=== PATIENT | female | born 1970 | race Caucasian/White ===

== ENCOUNTER 2021-07-17 21:08 | Emergency (ER) | payer MEDICARE, SELFPAY ==
[2021-07-17 21:29] VITALS: BP 144/89; PULSE 82; RESP 18; TEMP 36.9; O2SAT 100
[2021-07-17 21:43] VITALS: RESP 14
--- NOTE | 2021-07-17 21:47 | ED.GENADUL_ITS ---
Discharge Plan Disposition Patient Disposition: HOME Condition: Improving Discharge Details Clinical Impression: Pain Primary Care Provider: Manuel Chairez ED Provider: Bobby Draper Home Meds and New Rx's Prescriptions: Continued ibuprofen 800 mg Tablet 800 mg PO TID 0RF doxepin 25 mg Capsule 50 mg PO QHS 0RF cyanocobalamin (vitamin B-12) 1,000 mcg Tablet 1,000 mcg PO DIRECTED 0RF Rx Instructions: monthy gabapentin 800 mg Tablet 800 mg PO TID 0RF naproxen 500 mg Tablet 500 mg PO BID 0RF buspirone 15 mg Tablet 15 mg PO TID 0RF venlafaxine 75 mg Tablet Extended Release 24hr 75 mg PO DAILY 0RF Discharge Instructions Instructions: Back Pain (ED) Additional Instructions: Please be seen by your primary care doctor as scheduled on Saturday to obtain your prescriptions. Medical Decision Making 50-year-old female history of chronic pain present with body aches back pain acute on chronic atraumatic in nature over the past several days, is out of her medications is having her medications refilled on Saturday by her primary care doctor, no urinary symptoms afebrile neurologically intact ambulatory no ataxia, no midline spinal tenderness, no bowel or bladder issues. Likely component of mild opioid withdrawal given recent rehab discharge and no current prescriptions, low suspicion for traumatic or infectious process such as UTI or pyelonephritis, low suspicion for any acute neurologic impingement such as cauda equina. Will dose patient's gabapentin, will give IM Toradol, Lidoderm patch, patient is driving this evening will not administer opiate or benzodiazepine. Encourage follow-up. Resting comfortably no acute distress. Has primary care follow-up on Saturday. HPI General Date/Time Provider Initiated Documentation: 07/17/21 21:24 . HPI Narrative: 58-year-old female history of multiple bulging disks chronic pain, recently got out of rehab, presents with body pain backache acute on chronic atraumatic in nature, endorses that she takes gabapentin and multiple other medications and is having her medications filled on Saturday by her primary care doctor. Denies fevers nausea vomiting trouble breathing cough change in taste and smell. Related Data Home Medications Medication Instructions Recorded Confirmed buspirone 15 mg tablet 15 mg PO TID 07/17/21 07/17/21 cyanocobalamin (vitamin B-12) 1,000 mcg PO DIRECTED 07/17/21 07/17/21 1,000 mcg tablet doxepin 25 mg capsule 50 mg PO QHS 07/17/21 07/17/21 gabapentin 800 mg tablet 800 mg PO TID 07/17/21 07/17/21 ibuprofen 800 mg tablet 800 mg PO TID 07/17/21 07/17/21 naproxen 500 mg tablet 500 mg PO BID 07/17/21 07/17/21 venlafaxine 75 mg tablet,extended 75 mg PO DAILY 07/17/21 07/17/21 release 24 hr Allergies Allergy/AdvReac Type Severity Reaction Status Date / Time esomeprazole [From Nexium] Allergy Itching Unverified 07/17/21 21:34 oxycodone Allergy Itching Unverified 07/17/21 21:34 Penicillins Allergy Swelling/Ed Unverified 07/17/21 21:34 parul tramadol Allergy Hives Unverified 07/17/21 21:34 hand Allergy Hives Uncoded 07/17/21 21:34 General Stated Complaint: [facility] KETAN: 4 Review of Systems Narrative: Review of Systems Constitutional: Body pain backache Eyes: negative ENT: negative Cardiovascular: negative Respiratory: negative Gastrointestinal: negative : negative Musculoskeletal: Backache Skin: negative Neurologic: negative Psych: negative PFSH All Active Problems (Updated 07/17/21 @ 22:07 by Bobby Draper MD) Pain (Acute) Social History Smoking/Tobacco Use Status: Never Smoking risk assessment performed?: Yes Alcohol Intake: former Drug use: Current Sobriety Do you feel safe at home: Yes Do you feel safe in your relationship?: Yes Exam Narrative Exam Narrative: Physical Examination General: alert, awake, cooperative, resting comfortably, no acute distress HEENT: normocephalic, atraumatic; PERRL, EOM intact, conjunctiva normal; no nasal discharge; moist mucous membranes, oral and pharyngeal mucosa normal, tolerating secretions Neck: supple, trachea midline; full ROM Chest: normal to inspection Respiratory: normal respiratory effort, speaking in full sentences, clear to auscultation, no wheezing, rales or rhonchi Cardiac: regular rate, regular rhythm, S1S2 intact, no murmurs rubs or gallops GI: abdomen soft, non-tender, non-distended; no palpable mass or hepatosplenomegaly Back: No midline spinal tenderness crepitus or deformity Skin: no lesions, rashes or trauma appreciated Neuro: AAOx3, normal speech, moving all extremities; 5 out of 5 strength upper and lower extremities, ambulatory without assistance no ataxia Extremities: Full range of motion ambulatory Psych: Appropriate mood and affect Course Vital Signs Vital signs: Vital Signs Temperature 36.9 C 07/17/21 21:29 Pulse 82 07/17/21 21:29 Respiratory Rate 18 07/17/21 21:29 Blood Pressure 144/89 H 07/17/21 21:29 Pulse Oximetry 100 07/17/21 21:29 Temperature 36.9 C 07/17/21 21:29 Temperature Source Temporal Artery Scan 07/17/21 21:29 Pulse 82 07/17/21 21:29 Respiratory Rate 14 07/17/21 21:43 Respiratory Effort Non-Labored 07/17/21 21:43 Respiratory Depth Normal 07/17/21 21:43 Respiratory Pattern Normal 07/17/21 21:43 Blood Pressure 144/89 H 07/17/21 21:29 Blood Pressure Position Sitting 07/17/21 21:29 Pulse Oximetry 100 07/17/21 21:29 Oxygen Delivery Method Room Air 07/17/21 21:29 Oxygen Flow Rate 0 07/17/21 21:29
[2021-07-17] MEDS: Lidocaine 5% Patch 1 PATCH TP (21:57)
[2021-07-17] MEDS: Ketorolac 15 MG/ML VIAL IM (21:57)
[2021-07-17] MEDS: Gabapentin 600 MG TAB (21:58)
[2021-07-17 22:15] VITALS: BP 144/89; PULSE 82; RESP 14; TEMP 36.9; O2SAT 100
== END 2021-07-17 22:14 | disposition home or self-care (01) ==
PROVIDERS: Emergency Provider Emergency Medicine; PCP Family Medicine
DX: M54.9 Dorsalgia, unspecified (principal); M79.18 Myalgia, other site
CPT/HCPCS: 96372; 99284; 99283; J1885